=== PATIENT | female | born 1955 | race Caucasian/White ===

== ENCOUNTER 2018-07-16 07:55 | Emergency (ER) | payer OTHER, MEDICARE ==
--- NOTE | 2018-07-16 07:57 | PDOC ---
History of Present Illness - General Chief Complaint: Pain Stated Complaint: RIGHT LOWER ABDOMINAL PAIN Time Seen by Provider: 07/16/18 07:57 - History of Present Illness Initial Comments: 07/16/18 08:12 Chief complaint: Abdominal pain History of present illness: Patient complains of dysuria, hesitancy, and decreased urine output accompanied by midline and right pelvic pain for 2 days. Drinking more fluids but no relief. Review of systems: Denies fever/chills, nausea, vomiting, diarrhea, chest pain, shortness of breath, visual or focal neurologic symptoms, vaginal bleeding or discharge. Admits lower back pain midline, which may or may not be related Past medical history: Mood disorder on Effexor. Surgical treatment of ovarian cyst in the distant past. Otherwise no active medical or surgical problems Social/family history: , no tobacco alcohol or drugs. Family history noncontributory Physical exam: Alert and oriented well-developed well-nourished no acute distress cheerful and cooperative Afebrile, vital signs normal HEENT clear Neck supple without bruit mass or nodes Chest clear CV regular without murmur rub or gallop Abdomen nondistended. Bowel sounds normal. Soft without mass or organomegaly. There is no tenderness to palpation over the bladder, no bladder distention with percussion. There is no other lower quadrant tenderness and no CVAT. Skin clear, no rash, adequate turgor and wet mucous membranes Impression: UTI/cystitis. Other possibilities acute diverticulitis or ovarian/ tubal/uterine. Plan: Urinalysis and culture. CBC and chemistries. Further evaluation depending on results. Past History - Past Medical History Allergies/Adverse Reactions: Allergies Allergy/AdvReac Type Severity Reaction Status Date / Time Penicillins Allergy Unknown Verified 07/16/18 08:02 Home Medications: Ambulatory Orders Oxycodone HCl/Acetaminophen [Percocet 5-325 mg Tablet] 1 - 2 tab PO Q6H PRN #15 tab MDD 8 07/16/18 Venlafaxine HCl ER [Effexor Xr -] 150 mg PO DAILY 07/16/18 ED Treatment Course - LABORATORY CBC & Chemistry Diagram: 07/16/18 01:48 07/16/18 08:17 Medical Decision Making - Medical Decision Making 07/16/18 09:40 Urine shows 2-5 red cells, 0-3 white cells, 2+ blood. No nitrites or leukocyte esterase. Infection is unlikely. Most likely is renal colic with ureteral calculus. CBC, chemistries without significant abnormalities. No elevated white count. Normal renal function. Initiated fluids, analgesics, antibiotics. CT pending. 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 There is the suggestion of a suprarenal mass. There are also multiple ovarian cysts bilateral but most prominent on the right. No stone is visualized The etiology of the patient's pain remains uncertain. The severe onset this afternoon with rather abrupt resolution suggests acute renal colic with the complete passage of a stone into the bladder. This would be consistent with the hydroureter and hydronephrosis. No suggestion of a UTI. Small amount of blood in the urine would also be consistent with a stone. An ultrasound was performed to further evaluate the kidneys and the pelvic structures. However, the studies were limited and no further insights into the nature of the abnormal renal and ovarian findings were revealed. Results were extensively discussed with the patient and her partner. This sequence of further evaluation was recommended. Check the urine culture in 2 days and if there is infection present, obtain antibiotic treatment. Local back care measures such as heat, analgesics, rest, and avoid sitting. Further evaluation of the abnormal CT and ultrasound findings by specialists including [facility] and urology. Patient appears to understand and agree. Discharged in no pain with significant other to follow-up as directed. 07/16/18 17:15 *DC/Admit/Observation/Transfer Diagnosis at time of Disposition: Congenital enlarged kidney Ovarian cyst Qualifiers: Laterality: bilateral Qualified Code(s): N83.201 - Unspecified ovarian cyst, right side - Discharge Dispostion Disposition: HOME Condition at time of disposition: Improved Decision to Admit order: No - Prescriptions Prescriptions: Oxycodone HCl/Acetaminophen [Percocet 5-325 mg Tablet] 1 - 2 tab PO Q6H PRN #15 tab MDD 8 PRN Reason: Severe Pain - Referrals Referrals: Doyle Novak MD., MD [Staff Physician] - - Patient Instructions Printed Discharge Instructions: DI for Kidney Stones, DI for Ovarian Cyst Additional Instructions: Drink plenty of fluids, acetaminophen (Tylenol) for pain. If ineffective, prescription medication as directed. Back care, heat, relaxation, avoid the sitting position. Remain active. Check urine culture results in 2 days. Although no sign of infection in the preliminary urinalysis, it is possible to have an occult infection requiring culture to confirm. 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 This may require further evaluation and treatment by a specialist in [facility] and/or urology. Please follow-up as directed within a reasonable period of time. Return to ER if the pain is worse or further symptoms develop such as fever/ chills, painful or bloody urination, nausea or vomiting. - Post Discharge Activity
[2018-07-16 08:11] VITALS: TEMP 97.6; BMI 18.1
[2018-07-16 08:37] LABS: BASO % 0.2 % (0-2.0); EOS % 3.4 % (0-4.5); HEMATOCRIT 40.9 % (32.4-45.2); HEMOGLOBIN 13.7 GM/dl (10.7-15.3); LYMPH % 14.9 % (8-40); MCHC 33.4 g/dl (32.0-36.0); MEAN CELL VOLUME 89.8 fl (80-96); MEAN PLT VOLUME 8.4 fl (7.5-11.1); MONO % 4.8 % (3.8-10.2); NEUT % 76.7 % (42.8-82.8); PLATELET COUNT 239 K/MM3 (134-434); RBC 4.55 M/mm3 (3.60-5.2); RDW 12.2 % (11.6-15.6); WHITE BLOOD COUNT 6.8 K/mm3 (4.0-10.8)
[2018-07-16 09:04] LABS: URINE APPEARANCE Clear; URINE BILIRUBIN Negative (NEGATIVE); URINE COLOR Yellow; URINE GLUCOSE (UA) Negative (NEGATIVE); URINE KETONE Negative (NEGATIVE); URINE LEUK ESTERASE Negative (NEGATIVE); URINE NITRITE Negative (NEGATIVE); URINE PROTEIN Negative (NEGATIVE); URINE UROBILINOGEN 0.2 (0.2-1.0)
[2018-07-16 09:04] LABS: ALBUMIN 4.2 g/dl (3.4-5.0); ALK PHOS 77 U/L (45-117); ANION GAP 8 MMOL/L (8-16); BILIRUBIN,TOTAL 0.6 mg/dl (0.2-1); BLOOD UREA NITROGEN 13 mg/dl (7-18); CALCIUM 9.7 mg/dl (8.5-10); CHLORIDE 101 mmol/L (98-107); CO2 28 mmol/L (21-32); CREATININE 0.7 mg/dl (0.55-1.3); GLUCOSE,RANDOM 122 mg/dl (74-106); POTASSIUM 3.7 mmol/L (3.5-5.1); SGOT/AST 22 U/L (15-37); SGPT/ALT 17 U/L (13-61); SODIUM 137 mmol/L (136-145); TOT PROT 6.5 g/dl (6.4-8.2)
[2018-07-16 09:29] LABS: CALCIUM OXALATE CRYSTALS MODERATE /hpf (NONE SEEN); EPI CELLS FEW /HPF; URINE BACTERIA NONE SEEN /hpf (NEGATIVE); URINE WBC 0-3 (0-5)
[2018-07-16] MEDS ORDERED: SODIUM CHLORIDE 1,000 ML IV STA (09:38)
[2018-07-16] MEDS ORDERED: ONDANSETRON 4 MG/2 ML VIAL IVPB ONE (09:38)
[2018-07-16] MEDS ORDERED: KETOROLAC TROMETHAMINE 30 MG/1 ML VIAL IVPUSH ONE (09:38)
[2018-07-16] MEDS ORDERED: KETOROLAC TROMETHAMINE 30 MG/1 ML VIAL ONE (09:39)
[2018-07-16] MEDS ORDERED: ONDANSETRON 4 MG/2 ML VIAL ONE (09:42)
[2018-07-16 16:25] VITALS: BP 119/81; PULSE 81
== END 2018-07-16 16:31 | disposition home or self-care (01) ==
LOC: FER 07:55
PROC: 3E0333Z Introduction of Anti-inflammatory into Peripheral Vein, Percutaneous Approach (ICD-10-PCS; principal; 2018-07-16)
PROC: 3E033GC Introduction of Other Therapeutic Substance into Peripheral Vein, Percutaneous Approach (ICD-10-PCS; 2018-07-16)
PROC: 3E0337Z Introduction of Electrolytic and Water Balance Substance into Peripheral Vein, Percutaneous Approach (ICD-10-PCS; 2018-07-16)
DX: N83.201 Unspecified ovarian cyst, right side (principal); Q63.3 Hyperplastic and giant kidney
CPT/HCPCS: 36415; 74176; 76775-TC; 76856-TC; 80053; 81003; 81015; 85025; 87086; 99282-25; J7030

== ENCOUNTER 2020-05-01 14:09 | Emergency (ER) | payer OTHER, MEDICARE | END 2020-05-01 14:55 | disposition home or self-care (01) | LOC: JVIRT 14:09 | DX: Z11.59 Encounter for screening for other viral diseases (principal) | CPT/HCPCS: 36415; 86769; C9803; Q3014-GT; U0003 ==